=== PATIENT | female | born 1985 | race Caucasian/White ===

== ENCOUNTER 2018-07-10 14:15 | Emergency (ER) | payer OTHER, SELFPAY ==
[2018-07-10] MEDS ORDERED: Ketorolac Tromethamine 30 MG/ML VIAL ONE (14:26)
== END 2018-07-10 14:33 | disposition left against medical advice (07) ==
LOC: SCSER 14:15
DX: M54.5 Low back pain (principal); F17.210 Nicotine dependence, cigarettes, uncomplicated
CPT/HCPCS: 99283; J1885

== ENCOUNTER 2018-11-30 15:57 | Emergency (ER) | payer MEDICAID ==
[2018-11-30] MEDS ORDERED: Dexamethasone 10 MG/ML VIAL ONE (16:11)
== END 2018-11-30 16:21 | disposition home or self-care (01) ==
LOC: SCSER 15:57
DX: M54.5 Low back pain (principal); F17.210 Nicotine dependence, cigarettes, uncomplicated; F41.9 Anxiety disorder, unspecified; Z79.899 Other long term (current) drug therapy
CPT/HCPCS: 99283; J1100

== ENCOUNTER 2019-05-18 10:47 | Day surgery (SDC) | payer OTHER ==
[2019-05-15 12:30] VITALS: BMI 28.9
[2019-05-18] MEDS ORDERED: Fentanyl 100 MCG/2 ML VIAL ONE (13:11)
[2019-05-18] MEDS ORDERED: Midazolam HCl 2 mg/2 ml Vial ONE (13:11)
[2019-05-18] MEDS ORDERED: PROPOFOL 40 ML ONE (13:12)
--- NOTE | 2019-05-18 14:46 | MRI ---
LUMBAR SPINE MRI NONCONTRAST: INDICATION: Benign neoplasm. COMPARISON: No prior imaging comparisons are available. FINDINGS: Lumbar spine vertebral body heights and alignment are grossly preserved as are the disk space heights . Intrinsic T1 hyperintensity of the superior aspect of the L4 vertebral body indicates an interosse ous hemangioma versus focal fat deposition. Motion artifact is present during the exam which does li albertina the assessment. Conus medullaris is normal in morphology, terminating at the L1 level. There is no high-grade central canal stenosis throughout the lumbar spine. Minimal disk bulges are seen at L 3-4, L4-5, and L5-S1 levels. This results in slight perineural fat effacement at the bilateral L4-5 and L5-S1 foramina without high-grade compromise of the nerve roots. Provided history of benign neoplasm is limited in evaluation on the basis of this noncontrast exam. No obvious expansile process of the imaged nerve roots is seen by noncontrast imaging. Nonspecific free pelvic fluid is present. IMPRESSION: 1. Minimal degenerative change of the lumbar spine. 2. Limited evaluation for the provided clinical history of benign spinal neoplasm on the basis of no ncontrast imaging. Consider correlation with prior imaging, which is not currently available, as we ll as followup with contrast-enhanced imaging for more definitive assessment. POS: SAMMIE
[2019-05-18] MEDS ORDERED: Lidocaine 1% PF 5 ML VIAL ONE (15:59)
[2019-05-18] MEDS ORDERED: PROPOFOL 200 MG/20 ML VIAL ONE (15:59)
== END 2019-05-18 15:08 | disposition home or self-care (01) ==
LOC: SDC/OP 10:47 → EDSTATUS 13:00 → SDC/OP 15:08
PROVIDERS: ATTEND Neurological Surgery
DX: D17.1 Benign lipomatous neoplasm of skin and subcutaneous tissue of trunk (principal)
CPT/HCPCS: 72148; J2250; J2704; J3010

== ENCOUNTER 2019-06-12 20:17 | Emergency (ER) | payer OTHER ==
[2019-06-12] MEDS ORDERED: HYDROcodone/Acetaminophen 5/325 mg Tablet ONE (20:43)
--- NOTE | 2019-06-12 21:01 | RAD ---
Left lower leg 2 views HISTORY: Leg pain. FINDINGS: Tibia and fibula are intact. Soft tissue swelling at the lateral aspect of the lower leg. N o acute fracture, dislocation, soft tissue gas, or radiopaque foreign bodies are apparent. IMPRESSION: No acute osseous abnormalities are demonstrated.
== END 2019-06-12 21:11 | disposition home or self-care (01) ==
LOC: SCSER 20:17
DX: G89.18 Other acute postprocedural pain (principal); M79.605 Pain in left leg; F41.9 Anxiety disorder, unspecified; F17.210 Nicotine dependence, cigarettes, uncomplicated; Z79.891 Long term (current) use of opiate analgesic; Z79.899 Other long term (current) drug therapy; W45.0XXA Nail entering through skin, initial encounter